=== PATIENT | male | born 1965 | race Caucasian/White ===

== ENCOUNTER → 2020-01-24 | Outpatient (CLI) | payer OTHER ==
--- NOTE | 2020-01-24 14:29 | RAD ---
EXAM: Left knee, 4 views. HISTORY: Pain. COMPARISON: None. FINDINGS: 4 views of the left knee are obtained. There is mild compartment joint space narrowing and spurring. There is mild patellar spurring. There is a trace joint effusion. IMPRESSION: 1. Mild left knee osteoarthritis with trace knee effusion. 2. No acute osseous finding. Electronically signed by: Latanya Torres MD (01/24/2020 2:26 PM) [id number]
== END | disposition home or self-care (01) ==
LOC: RAD 13:53
PROVIDERS: ATTEND Physician Assistant
DX: M17.12 Unilateral primary osteoarthritis, left knee (principal)
CPT/HCPCS: 73564